=== PATIENT | female | born 1995 | race Caucasian/White ===

== ENCOUNTER 2017-02-25 11:04 | Emergency (ER) | payer MEDICAID ==
[~2017-02-25] VITALS: Ht 165.1 cm; Wt 63.5 kg
[~2017-02-25 11:04] MED LIST: PREN-385 PO
[2017-02-25 11:10] VITALS: BP 118/77
[2017-02-25 12:07] LABS: BASOPHILS # (AUTO) 0.2 K/uL (0.00-0.22); BASOPHILS % (AUTO) 2.2 % (0.0-2.0); EOSINOPHILS # (AUTO) 0.2 K/uL (0-0.4); EOSINOPHILS % (AUTO) 1.9 % (0.0-4.0); HEMATOCRIT 37.2 % (36-48); HEMOGLOBIN 12.1 g/dL (12.0-16.0); LYMPHOCYTES # (AUTO) 1.7 K/uL (2.5-16.5); LYMPHOCYTES % (AUTO) 17.8 % (20.5-51.1); MEAN CORPUSCULAR HEMOGLOBIN 25 pg (27-31); MEAN CORPUSCULAR HGB CONC 33 g/dL (33-37); MEAN CORPUSCULAR VOLUME 78 fL (80-94); MONOCYTES # (AUTO) 0.5 K/uL (0.8-1.0); MONOCYTES % (AUTO) 4.8 % (1.7-9.3); NEUTROPHILS # (AUTO) 6.9 K/uL (1.8-7.7); NEUTROPHILS % (AUTO) 73.3 % (42.2-75.2); PLATELET COUNT (AUTO) 233 K/uL (140-450); RED BLOOD CELL COUNT(AUTO) 4.79 MIL/uL (4.20-5.40); RED CELL DISTRIBUTION WIDTH 16.9 % (11.6-13.7); WHITE BLOOD COUNT (AUTO) 9.5 K/uL (4.8-10.8)
[2017-02-25 12:15] LABS: BILIRUBIN,URINE NEGATIVE (NEGATIVE); BLOOD, URINE NEGATIVE (NEGATIVE); COLOR,URINE YELLOW (YELLOW); LEUKOCYTE ESTERASE ,URINE NEGATIVE (NEGATIVE); NITRITE, URINE NEGATIVE (NEGATIVE); PH,URINE 7.5 (5.0-9.0); PROTEIN,URINE NEGATIVE (NEGATIVE); UGLUCOSE NEGATIVE (NEGATIVE); UROBILINOGEN,URINE 0.2 EU/dL (0.2 - 1)
[2017-02-25 12:36] LABS: APPEARANCE,URINE CLEAR (CLEAR); BACTERIA,URINE 0-2 (RARE) /HPF (None Seen); RBC,URINE NONE SEEN /HPF (0-5); SQUAMOUS EPITHELIAL CELL,UR 0-3 (FEW) /LPF (0-3 (FEW)); WBC,URINE 0-5 (RARE) /HPF (0-5)
[2017-02-25 13:34] VITALS: BP 113/69
[2017-02-27 06:17] LABS: CHLAMYDIA TRACHOMATIS AMP DNA Negative (Negative)
== END 2017-02-25 13:34 | disposition home or self-care (01) ==
LOC: MED 11:04
DX: O20.0 Threatened abortion (principal); Z88.6 Allergy status to analgesic agent; Z88.5 Allergy status to narcotic agent; Z3A.10 10 weeks gestation of pregnancy
CPT/HCPCS: 36415; 76801; 81001; 81025; 84702; 85025; 86900; 86901; 87205; 87210; 87491; 99285; Q0092

== ENCOUNTER 2017-04-17 21:28 | Emergency (ER) | payer MEDICAID ==
[~2017-04-17] VITALS: Ht 165.1 cm; Wt 68.0 kg
[2017-04-17 21:33] VITALS: BP 108/62
--- NOTE | 2017-04-17 21:40 | NUR ---
Kate casas in [facility] - 04/17/17 at 2142 by MEDDM TO ER BED 8
--- NOTE | 2017-04-17 21:40 | NUR ---
21/F BIB MOTHER C/O 11/25 SUPRAPUBIC PAIN X STARTED 2 HOURS AGO. PT STATES SHE IS 18 WEEK , NO VAG BLEEDING NOR CONTRACTIONS, LMP JANUARY 26. PT REPORTS DRIBBLING/URGENCY WITH VOIDING, DENIES HEMATURIA/BURNING. VSS; PATIENT POSITIONED FOR COMFORT; HOB ELEVATED; BEDRAILS UP X2; BED DOWN. ER MD MADE AWARE OF PT STATUS.
--- NOTE | 2017-04-17 21:42 | NUR ---
PT TAKEN TO BED 8.
--- NOTE | 2017-04-17 21:47 | NUR ---
Patient being evaluated by physician at bedside.
[2017-04-17 22:18] LABS: BASOPHILS # (AUTO) 0.2 K/uL (0.00-0.22); BASOPHILS % (AUTO) 1.5 % (0.0-2.0); EOSINOPHILS # (AUTO) 0.1 K/uL (0-0.4); EOSINOPHILS % (AUTO) 0.7 % (0.0-4.0); HEMATOCRIT 35.8 % (36-48); HEMOGLOBIN 11.7 g/dL (12.0-16.0); LYMPHOCYTES % (AUTO) 15.4 % (20.5-51.1); MEAN CORPUSCULAR HEMOGLOBIN 26 pg (27-31); MEAN CORPUSCULAR HGB CONC 33 g/dL (33-37); MEAN CORPUSCULAR VOLUME 81 fL (80-94); MONOCYTES # (AUTO) 0.5 K/uL (0.8-1.0); MONOCYTES % (AUTO) 3.8 % (1.7-9.3); NEUTROPHILS # (AUTO) 10.1 K/uL (1.8-7.7); NEUTROPHILS % (AUTO) 78.6 % (42.2-75.2); PLATELET COUNT (AUTO) 232 K/uL (140-450); RED BLOOD CELL COUNT(AUTO) 4.41 MIL/uL (4.20-5.40); RED CELL DISTRIBUTION WIDTH 14.4 % (11.6-13.7); WHITE BLOOD COUNT (AUTO) 12.9 K/uL (4.8-10.8)
--- NOTE | 2017-04-17 22:21 | NUR ---
Ultrasound at bedside.
[2017-04-17 22:39] LABS: ALBUMIN 3.1 g/dL (3.4-5.0); CARBON DIOXIDE 22.6 mmol/L (21-32); CREATININE 0.6 mg/dL (0.6-1.3); POTASSIUM 3.6 mmol/L (3.5-5.1); TOTAL BILIRUBIN 0.3 mg/dL (0.0-1.0)
[2017-04-17 22:54] LABS: APPEARANCE,URINE HAZY (CLEAR); BILIRUBIN,URINE NEGATIVE (NEGATIVE); BLOOD, URINE NEGATIVE (NEGATIVE); COLOR,URINE YELLOW (YELLOW); LEUKOCYTE ESTERASE ,URINE NEGATIVE (NEGATIVE); NITRITE, URINE NEGATIVE (NEGATIVE); UGLUCOSE NEGATIVE (NEGATIVE)
[2017-04-17 23:08] LABS: RBC,URINE 0-5 (RARE) /HPF (0-5); WBC,URINE 6-15 (FEW) /HPF (0-5)
--- NOTE | 2017-04-17 23:21 | NUR ---
Patient discharged with v/s stable. Written and verbal after care instructions given and explained. Patient alert, oriented and verbalized understanding of instructions. Ambulatory with steady gait. All questions addressed prior to discharge. ID band removed. Patient advised to follow up with PMD. Rx of MACROBID 1 CAP PO TWICE DAILY X 10DAYS given. Patient educated on indication of medication including possible reaction and side effects. Opportunity to ask questions provided and answered. Addendum: 04/17/17 at 2322 by DARYL PT DISCHARGED BY JAZMYN CORNEJO
== END 2017-04-17 23:20 | disposition home or self-care (01) ==
LOC: MED 21:28
DX: O23.42 Unspecified infection of urinary tract in pregnancy, second trimester (principal); Z3A.18 18 weeks gestation of pregnancy; Z88.5 Allergy status to narcotic agent; Z88.6 Allergy status to analgesic agent; Z79.899 Other long term (current) drug therapy
CPT/HCPCS: 36415; 76805; 80053; 81001; 84702; 85025; 86900; 86901; 87086; 99285; Q0092

== ENCOUNTER 2017-06-21 15:52 | Emergency (ER) | payer MEDICAID ==
[~2017-06-21] VITALS: Ht 165.1 cm; Wt 72.6 kg
[2017-06-21 13:46] VITALS: BP 112/57
[2017-06-21 16:13] VITALS: BP 136/71
--- NOTE | 2017-06-21 16:21 | NUR ---
22F BIB SELF WITH FROM L&D WITH THE C/0 COUGH AND CONGESTION X 1WK; PT REPORTS FEVER LAST NIGHT; LMP 01/19/17, G6 G2 M3; PT DENIES ANY PAIN AT THIS TIME, ONLY WHEN COUGHING; PT DENIES ANY CP, SOB, OR VAGINAL BLEEDING; PT IS AOX4, RR ARE EVEN AND UNLABORED; ER MD AWARE OF PT STATUS; NAD; WILL CONTINUE TO MONITOR.
[2017-06-21] MEDS ORDERED: ALBUTEROL 0.083% 2.5 MG/3 ML NEBU INH ONE (16:45)
--- NOTE | 2017-06-21 16:55 | NUR ---
RT BY BEDSIDE
--- NOTE | 2017-06-21 17:33 | NUR ---
Patient discharged with v/s stable. Written and verbal after care instructions given and explained. Patient alert, oriented and verbalized understanding of instructions. Ambulatory with steady gait. All questions addressed prior to discharge. ID band removed. Patient advised to follow up with PMD. Rx of Robitussin, ProAir, and Cephalexin given. Patient educated on indication of medication including possible reaction and side effects. Opportunity to ask questions provided and answered.
[2017-06-21 17:34] VITALS: BP 126/64
== END 2017-06-21 17:33 | disposition home or self-care (01) ==
LOC: EDSTATUS 15:52 → MED 15:52
DX: O26.892 Other specified pregnancy related conditions, second trimester (principal); J20.9 Acute bronchitis, unspecified; J98.01 Acute bronchospasm; J32.9 Chronic sinusitis, unspecified; Z79.899 Other long term (current) drug therapy; Z88.8 Allergy status to other drugs, medicaments and biological substances
CPT/HCPCS: 59025; 76805; 81000; 94640; 99285; J7613; Q0092

== ENCOUNTER 2017-09-23 14:37 | Emergency (ER) | payer MEDICAID ==
[~2017-09-23] VITALS: Ht 165.1 cm; Wt 68.0 kg
[2017-09-23 15:15] VITALS: BP 133/93
--- NOTE | 2017-09-23 15:15 | NUR ---
PT AMBULATED TO BED 2.
--- NOTE | 2017-09-23 15:27 | NUR ---
TRIP AND FALL X1 WEEK AGO AND STATES SHE HIT HER HEAD ON THE SIDE WALK; DENIES LOC BUT C/O INTERMITTENT BLURRY VISION AND DIZZINESS. NO HEMATOMA NOTED, NO OBVIOUS INJURY. AAOX4, IN NAD. HX DENIES; 09/16/17
[2017-09-23] MEDS ORDERED: IBUPROFEN 800 MG TAB PO ONE (15:30)
[2017-09-23] MEDS ORDERED: ONDANSETRON 4 MG/2 ML VIAL IVP ONE (16:10)
[2017-09-23] MEDS ORDERED: NACL 0.9% 1,000 ML IV ONE (16:10)
[2017-09-23 16:39] LABS: BASOPHILS % (AUTO) 0.5 % (0.0-2.0); EOSINOPHILS # (AUTO) 0.2 K/uL (0-0.4); EOSINOPHILS % (AUTO) 1.9 % (0.0-4.0); HEMOGLOBIN 8.3 g/dL (12.0-16.0); LYMPHOCYTES # (AUTO) 1.9 K/uL (2.5-16.5); LYMPHOCYTES % (AUTO) 20.5 % (20.5-51.1); MEAN CORPUSCULAR HEMOGLOBIN 23 pg (27-31); MEAN CORPUSCULAR HGB CONC 32 g/dL (33-37); MEAN CORPUSCULAR VOLUME 73 fL (80-94); MONOCYTES # (AUTO) 0.4 K/uL (0.8-1.0); MONOCYTES % (AUTO) 4.6 % (1.7-9.3); NEUTROPHILS # (AUTO) 6.7 K/uL (1.8-7.7); NEUTROPHILS % (AUTO) 72.5 % (42.2-75.2); PLATELET COUNT (AUTO) 392 K/uL (140-450); RED BLOOD CELL COUNT(AUTO) 3.59 MIL/uL (4.20-5.40); WHITE BLOOD COUNT (AUTO) 9.3 K/uL (4.8-10.8)
[2017-09-23 16:55] LABS: ANION GAP 13.5 (8-16); CARBON DIOXIDE 24.3 mmol/L (21-32); CREATININE 0.6 mg/dL (0.6-1.3); POTASSIUM 3.8 mmol/L (3.5-5.1)
[2017-09-23 16:59] LABS: ALBUMIN 2.6 g/dL (3.4-5.0); TOTAL BILIRUBIN 0.2 mg/dL (0.0-1.0)
--- NOTE | 2017-09-23 17:01 | NUR ---
PT TO CT SCAN
[2017-09-23 17:54] VITALS: BP 117/79
--- NOTE | 2017-09-23 17:55 | NUR ---
Patient discharged with v/s stable. Written and verbal after care instructions given and explained. Patient verbalized understanding. Ambulatory with to home. All questions addressed prior to discharge. Advised to follow up with PMD.
== END 2017-09-23 17:55 | disposition home or self-care (01) ==
LOC: MED 14:37
DX: F07.81 Postconcussional syndrome (principal); Z88.6 Allergy status to analgesic agent; Z88.5 Allergy status to narcotic agent
CPT/HCPCS: 36415; 70450; 80053; 85025; 96360; 99285; J7030; 81025

== ENCOUNTER 2018-07-20 17:27 | Emergency (ER) | payer MEDICAID ==
[~2018-07-20] VITALS: Ht 165.1 cm; Wt 80.3 kg
[2018-07-20 17:30] VITALS: BP 119/78
[2018-07-20] MEDS ORDERED: NACL 0.9% 1,000 ML IV ONE (18:05)
[2018-07-20] MEDS ORDERED: ONDANSETRON 4 MG/2 ML VIAL IVP ONE (18:05)
[2018-07-20] MEDS ORDERED: KETOROLAC 30 MG/ML VIAL IVP ONE (18:05)
[2018-07-20 18:39] LABS: BASOPHILS # (AUTO) 0.1 K/uL (0.00-0.22); BASOPHILS % (AUTO) 0.5 % (0.0-2.0); EOSINOPHILS # (AUTO) 0.1 K/uL (0-0.4); EOSINOPHILS % (AUTO) 0.9 % (0.0-4.0); HEMATOCRIT 37.8 % (36-48); LYMPHOCYTES # (AUTO) 2.5 K/uL (2.5-16.5); LYMPHOCYTES % (AUTO) 21.2 % (20.5-51.1); MEAN CORPUSCULAR HEMOGLOBIN 25 pg (27-31); MEAN CORPUSCULAR HGB CONC 32 g/dL (33-37); MEAN CORPUSCULAR VOLUME 77.3 fL (80-94); MONOCYTES # (AUTO) 0.6 K/uL (0.8-1.0); MONOCYTES % (AUTO) 5.5 % (1.7-9.3); NEUTROPHILS # (AUTO) 8.5 K/uL (1.8-7.7); NEUTROPHILS % (AUTO) 71.9 % (42.2-75.2); PLATELET COUNT (AUTO) 242 K/uL (140-450); RED BLOOD CELL COUNT(AUTO) 4.89 MIL/uL (4.20-5.40); RED CELL DISTRIBUTION WIDTH 16.5 % (11.6-13.7); WHITE BLOOD COUNT (AUTO) 11.8 K/uL (4.8-10.8)
[2018-07-20 18:59] LABS: APPEARANCE,URINE CLEAR (CLEAR); BILIRUBIN,URINE NEGATIVE (NEGATIVE); BLOOD, URINE NEGATIVE (NEGATIVE); COLOR,URINE YELLOW (YELLOW); LEUKOCYTE ESTERASE ,URINE TRACE (NEGATIVE); NITRITE, URINE NEGATIVE (NEGATIVE); PH,URINE 6.5 (5.0-9.0); UGLUCOSE NEGATIVE (NEGATIVE)
[2018-07-20 19:01] LABS: PROTHROMBIN TIME 9.5 secs (10.8-13.4)
[2018-07-20 19:27] LABS: ANION GAP 17.2 (8-16); CREATININE 0.6 mg/dL (0.6-1.3); POTASSIUM 4.2 mmol/L (3.5-5.1); TOTAL BILIRUBIN 0.2 mg/dL (0.0-1.0)
[2018-07-20 19:38] LABS: RBC,URINE 0-5 (RARE) /HPF (0-5); WBC,URINE 6-15 (FEW) /HPF (0-5)
[2018-07-20 20:24] VITALS: BP 120/75
== END 2018-07-20 20:24 | disposition home or self-care (01) ==
LOC: MED 17:27
DX: O20.8 Other hemorrhage in early pregnancy (principal); Z3A.14 14 weeks gestation of pregnancy; Z79.899 Other long term (current) drug therapy; Z88.6 Allergy status to analgesic agent; Z88.5 Allergy status to narcotic agent
CPT/HCPCS: 36415; 76705; 76801; 80053; 81001; 81025; 82150; 83690; 85025; 85610; 85730; 87086; 96374; 99284; J2405; J7030; Q0092

== ENCOUNTER 2018-08-07 19:10 | Emergency (ER) | payer MEDICAID ==
[~2018-08-07] VITALS: Ht 165.1 cm; Wt 78.5 kg
[2018-08-07 19:15] VITALS: BP 166/58
--- NOTE | 2018-08-07 19:23 | NUR ---
PT AMBULATED TO LOBBY WITH VSS.
--- NOTE | 2018-08-07 19:40 | NUR ---
TO RADIOLOGY VIA
--- NOTE | 2018-08-07 20:32 | NUR ---
RETURN FROM RADIOLOGY, LAB AT BEDSIDE.
--- NOTE | 2018-08-07 20:41 | NUR ---
PT PRESENTS TO ED W C/O CHEST PAIN WHILE COUGHING, NAUSEA, AND SEVERE GREGG X3 DAYS. 01/25. NON-PRODUCTIVE COUGH. C/O BURNING WHEN COUGHING. LUNGS CLEAR BILAT THROUGHOUT. ABD IS SOFT, FLAT. BOWEL SOUNDS PRESENT. PT PLACED INTO BED, PENDING MD MENDEZ. PMH--DENIES
[2018-08-07 20:47] LABS: BASOPHILS % (AUTO) 0.4 % (0.0-2.0); EOSINOPHILS # (AUTO) 0.2 K/uL (0-0.4); EOSINOPHILS % (AUTO) 1.6 % (0.0-4.0); HEMATOCRIT 38.5 % (36-48); HEMOGLOBIN 12.2 g/dL (12.0-16.0); LYMPHOCYTES # (AUTO) 2.2 K/uL (2.5-16.5); MEAN CORPUSCULAR HEMOGLOBIN 25 pg (27-31); MEAN CORPUSCULAR HGB CONC 32 g/dL (33-37); MEAN CORPUSCULAR VOLUME 78.1 fL (80-94); MONOCYTES # (AUTO) 0.5 K/uL (0.8-1.0); MONOCYTES % (AUTO) 4.3 % (1.7-9.3); NEUTROPHILS # (AUTO) 8.6 K/uL (1.8-7.7); NEUTROPHILS % (AUTO) 74.7 % (42.2-75.2); PLATELET COUNT (AUTO) 251 K/uL (140-450); RED BLOOD CELL COUNT(AUTO) 4.93 MIL/uL (4.20-5.40); RED CELL DISTRIBUTION WIDTH 16.5 % (11.6-13.7); WHITE BLOOD COUNT (AUTO) 11.5 K/uL (4.8-10.8)
[2018-08-07 20:57] LABS: ANION GAP 8.7 (8-16); CARBON DIOXIDE 25.9 mmol/L (21-32); CREATININE 0.7 mg/dL (0.6-1.3); POTASSIUM 3.6 mmol/L (3.5-5.1)
[2018-08-07 20:58] LABS: APPEARANCE,URINE CLEAR (CLEAR); BILIRUBIN,URINE NEGATIVE (NEGATIVE); BLOOD, URINE NEGATIVE (NEGATIVE); COLOR,URINE YELLOW (YELLOW); LEUKOCYTE ESTERASE ,URINE TRACE (NEGATIVE); NITRITE, URINE NEGATIVE (NEGATIVE); PH,URINE 6.5 (5.0-9.0); UGLUCOSE NEGATIVE (NEGATIVE)
[2018-08-07 20:59] LABS: RBC,URINE 0-5 (RARE) /HPF (0-5); WBC,URINE 0-5 (RARE) /HPF (0-5)
[2018-08-07 21:48] VITALS: BP 144/51
== END 2018-08-07 21:49 | disposition home or self-care (01) ==
LOC: MED 19:10
DX: O26.892 Other specified pregnancy related conditions, second trimester (principal); O21.8 Other vomiting complicating pregnancy; R07.89 Other chest pain; R51 Headache; R05 Cough; Z3A.16 16 weeks gestation of pregnancy; Z88.6 Allergy status to analgesic agent; Z88.5 Allergy status to narcotic agent; Z79.899 Other long term (current) drug therapy
CPT/HCPCS: 36415; 76805; 80048; 81001; 84702; 85025; 86900; 86901; 99284; Q0092; 93005

== ENCOUNTER 2018-10-02 17:45 | Observation (INO) | payer MEDICAID ==
[~2018-10-02] VITALS: Ht 165.1 cm; Wt 77.1 kg
[2018-10-02 18:29] VITALS: BP 119/70
[2018-10-02] MEDS ORDERED: FERR-252 PO (18:37)
[2018-10-02 20:18] LABS: APPEARANCE,URINE CLOUDY (CLEAR); BILIRUBIN,URINE NEGATIVE (NEGATIVE); BLOOD, URINE 3+ (NEGATIVE); COLOR,URINE YELLOW (YELLOW); LEUKOCYTE ESTERASE ,URINE 3+ (NEGATIVE); NITRITE, URINE NEGATIVE (NEGATIVE); PH,URINE 6.5 (5.0-9.0); UGLUCOSE NEGATIVE (NEGATIVE)
[2018-10-02 20:19] LABS: BASOPHILS # (AUTO) 0.1 K/uL (0.00-0.22); BASOPHILS % (AUTO) 0.4 % (0.0-2.0); EOSINOPHILS # (AUTO) 0.1 K/uL (0-0.4); EOSINOPHILS % (AUTO) 0.9 % (0.0-4.0); HEMATOCRIT 32.9 % (36-48); HEMOGLOBIN 10.9 g/dL (12.0-16.0); LYMPHOCYTES # (AUTO) 2.4 K/uL (2.5-16.5); MEAN CORPUSCULAR HEMOGLOBIN 26 pg (27-31); MEAN CORPUSCULAR HGB CONC 33 g/dL (33-37); MEAN CORPUSCULAR VOLUME 77.7 fL (80-94); MONOCYTES # (AUTO) 0.8 K/uL (0.8-1.0); MONOCYTES % (AUTO) 6.3 % (1.7-9.3); NEUTROPHILS # (AUTO) 9.8 K/uL (1.8-7.7); NEUTROPHILS % (AUTO) 74.4 % (42.2-75.2); PLATELET COUNT (AUTO) 272 K/uL (140-450); RED BLOOD CELL COUNT(AUTO) 4.24 MIL/uL (4.20-5.40); WHITE BLOOD COUNT (AUTO) 13.2 K/uL (4.8-10.8)
[2018-10-02 20:23] LABS: RBC,URINE 50-80 /HPF (0-5); WBC,URINE 20-60 /HPF (0-5)
[2018-10-02] MEDS ORDERED: AMPICILLIN 2,000 MG VIAL ONE (21:59)
[2018-10-02] MEDS ORDERED: IBUPROFEN 800 MG TAB PO SCH (22:00)
[2018-10-02] MEDS: LACTATED RINGERS 1,000 ML IV SCH (22:55)
[2018-10-02] MEDS: AMPICILLIN 2,000 MG in NACL 0.9% 100 ML IV SCH (22:56)
[2018-10-03] MEDS: AMPICILLIN 2,000 MG in NACL 0.9% 100 ML IV SCH ×3 (01:55→10:07)
[2018-10-03] MEDS ORDERED: AMPICILLIN 2,000 MG VIAL ONE ×4 (01:57→14:14)
[2018-10-03] MEDS: LACTATED RINGERS 1,000 ML IV SCH (07:29)
--- NOTE | 2018-10-03 08:24 | NUR ---
PATIENT HAS BEEN SCREENED AND CATEGORIZED LOW NUTRITION RISK. PATIENT WILL BE SEEN WITHIN 7 DAYS OF ADMISSION. 10/09/[address]
== END 2018-10-03 14:45 | disposition home or self-care (01) ==
LOC: MLD 17:45
PROVIDERS: ADMIT Obstetrics & Gynecology; ATTEND Obstetrics & Gynecology
DX: O26.892 Other specified pregnancy related conditions, second trimester (principal); R10.9 Unspecified abdominal pain; Z3A.24 24 weeks gestation of pregnancy
CPT/HCPCS: 36415; 81001; 85025; 87086; 96365; 96366; C1758; G0378; J0290; J7120

== ENCOUNTER 2020-03-22 16:13 | Emergency (ER) | payer MEDICAID, OTHER ==
[~2020-03-22] VITALS: Ht 165.1 cm; Wt 83.9 kg
[~2020-03-22 16:13] MED LIST changes: +FERR-252 PO
--- NOTE | 2020-03-22 16:23 | NUR ---
Patient ambulated to bed 6. RN evaluating the patient at bedside.
[2020-03-22 16:26] VITALS: BP 122/78
--- NOTE | 2020-03-22 16:59 | NUR ---
24 YEAR OLD FEMALE COMPLAINS OF LOWER RIGHT QUADRANT PAIN IN ABDOMEN THAT RADIATES TO LOWER BACK. PT DENIES ANY CHANGE IN URINATION, OR BLOOD IN URINATION. PT STATES SHE HAS NAUSEA, VOMITTING. PT AOX4, BREATHING EVEN AND UNLABORED, SKIN WARM AND DRY. BED IN LOWEST POSITION, LOCKED, BED RAIL UPX1. PMH -DENIES ALLERGIES - VICOTIN
[2020-03-22] MEDS ORDERED: ACETAMINOPHEN EXTRA STRENGTH 500 MG TAB PO ONE (17:05)
[2020-03-22] MEDS ORDERED: KETOROLAC 15 MG/ML VIAL IVP ONE (17:05)
--- NOTE | 2020-03-22 17:21 | NUR ---
US tech at bedside for exam.
[2020-03-22 17:28] LABS: APPEARANCE,URINE CLEAR (CLEAR); BASOPHILS # (AUTO) 0.1 K/uL (0.00-0.22); BASOPHILS % (AUTO) 0.7 % (0.0-2.0); BILIRUBIN,URINE NEGATIVE (NEGATIVE); BLOOD, URINE TRACE-I (NEGATIVE); COLOR,URINE YELLOW (YELLOW); EOSINOPHILS # (AUTO) 0.2 K/uL (0-0.4); EOSINOPHILS % (AUTO) 1.8 % (0.0-4.0); HEMOGLOBIN 14.6 g/dL (12.0-16.0); LEUKOCYTE ESTERASE ,URINE TRACE (NEGATIVE); LYMPHOCYTES # (AUTO) 2.7 K/uL (2.5-16.5); LYMPHOCYTES % (AUTO) 30.6 % (20.5-51.1); MEAN CORPUSCULAR HEMOGLOBIN 30 pg (27-31); MEAN CORPUSCULAR HGB CONC 33 g/dL (33-37); MEAN CORPUSCULAR VOLUME 89.2 fL (80-94); MONOCYTES # (AUTO) 0.8 K/uL (0.8-1.0); MONOCYTES % (AUTO) 8.9 % (1.7-9.3); NEUTROPHILS # (AUTO) 5.2 K/uL (1.8-7.7); NITRITE, URINE NEGATIVE (NEGATIVE); PH,URINE 6.5 (5.0-9.0); PLATELET COUNT (AUTO) 251 K/uL (140-450); RED BLOOD CELL COUNT(AUTO) 4.93 MIL/uL (4.20-5.40); RED CELL DISTRIBUTION WIDTH 13.7 % (11.6-13.7); UGLUCOSE NEGATIVE (NEGATIVE); WHITE BLOOD COUNT (AUTO) 8.9 K/uL (4.8-10.8)
[2020-03-22 17:47] LABS: ALBUMIN 3.7 g/dL (3.4-5.0); ANION GAP 17.8 (8-16); CARBON DIOXIDE 22.3 mmol/L (21-32); CREATININE 0.8 mg/dL (0.6-1.3); POTASSIUM 4.1 mmol/L (3.5-5.1); TOTAL BILIRUBIN 0.2 mg/dL (0.0-1.0)
--- NOTE | 2020-03-22 17:53 | NUR ---
PT ALERT AND AWAKE, BREATHING EVEN AND UNLABORED. NO DISTRESS NOTED. WILL CONTINUE TO MONITOR.
[2020-03-22] MEDS ORDERED: ONDANSETRON 4 MG/2 ML VIAL IVP ONE (18:15)
[2020-03-22] MEDS ORDERED: MORPHINE SULFATE 4 MG/ML SYR IVP ONE (18:15)
--- NOTE | 2020-03-22 18:16 | NUR ---
CONSENT SIGNED BY PATIENT, SIGNED BY ERMD. PATIENT BEING TAKEN TO CT
--- NOTE | 2020-03-22 18:17 | NUR ---
PT REPORTS 6/10 PAIN AFTER TORADOL ADMINISTRATION. PER PT, ALLERGY TO VICODIN RESULTS IN PRURITIS & NAUSEA. DENIES ANAPHYLACTIC REACTION. ERMD MADE AWARE AND WILL ORDER MORE PAIN MEDICATION FOR PT.
--- NOTE | 2020-03-22 18:32 | NUR ---
Patient returned from CT scan. RN reevaluating the patient at bedside.
--- NOTE | 2020-03-22 19:05 | NUR ---
REPORT GIVEN TO ELVIA PATEL, TRANSFER OF CARE AT THIS TIME
--- NOTE | 2020-03-22 19:13 | NUR ---
PT RESTING COMFORTABLY, DENIES ANY NAUSEA AND STATES PAIN TO LOWER ABD IS NOW 1/10.
--- NOTE | 2020-03-22 19:13 | NUR ---
REPORT RECEIVED FROM CYNTHIA PATEL.
--- NOTE | 2020-03-22 19:40 | NUR ---
Patient discharged with v/s stable. Written and verbal after care instructions given and explained. Patient alert, oriented and verbalized understanding of instructions. Ambulatory with steady gait. All questions addressed prior to discharge. ID band removed. Patient advised to follow up with PMD. Rx of tylenol with codeine, motrin and flomax given. Patient educated on indication of medication including possible reaction and side effects. Opportunity to ask questions provided and answered.
== END 2020-03-22 19:40 | disposition home or self-care (01) ==
LOC: MED 16:13
DX: N83.291 Other ovarian cyst, right side (principal); N23 Unspecified renal colic; N20.0 Calculus of kidney; Z88.5 Allergy status to narcotic agent; Z79.899 Other long term (current) drug therapy
CPT/HCPCS: 36415; 74177; 76856; 80053; 81001; 81003; 81025; 83690; 84703; 85025; 87086; 87186; 96374; 96375; 99285; J1885; J2270; J2405; Q0092; Q9967

== ENCOUNTER 2020-03-25 09:34 | Inpatient (IN) | payer OTHER, SELFPAY ==
[~2020-03-25] VITALS: Ht 165.1 cm; Wt 83.9 kg
[2020-03-25 09:39] VITALS: BP 129/75
--- NOTE | 2020-03-25 09:45 | NUR ---
PT C/O RIGHT FLANK PAIN RADIATING TO RLQ ABDOMINAL AREA FOR 4 DAYS. PT WAS SEEN HERE LAST WEDNESDAY, CT SHOWED NEPHROLITHIASIS-7MM, WAS TOLD TO COME BACK IF PAIN PERSISTS OR FEVER DEVELOPS. PT STATES FEVER X 2 DAYS. TEMP 101 THIS MORNING, PT TOOK TYLENOL 1 HR AGO, AFEBRILE AT THIS TIME. PT ALSO C/O NAUSEA, VOMITING, FEVER, CHILLS, URINARY FREQUENCY WITH ODOR. DENIES DYSURIA OR BURNING SENSATION OF URINATION. ABDOMEN IS SOFT AND SLIGHT TENDER BUT NO GUARDING OR REBOUND TENDER TO PALPATION ON RICARDO LOWER QUADRANTS, RIGHT SIDE IS MORE PAINFUL THAN THE LEFT SIDE. NO CVA TENDERNESS RICARDO. SKIN IS PINK/WARM/DRY; AAOX4 WITH EVEN AND STEADY GAIT; HR EVEN AND REGULAR; PT DENIES ANY CP, SOB, OR COUGH AT THIS TIME; PATIENT STATES PAIN OF 5/10 AT THIS TIME; VSS; PATIENT POSITIONED FOR COMFORT; HOB ELEVATED; BEDRAILS UP X1; BED DOWN. ER MD MADE AWARE OF PT STATUS.
[2020-03-25] MEDS ORDERED: ONDANSETRON 4 MG/2 ML VIAL IVP ONE ×2 (10:10→14:45)
[2020-03-25] MEDS ORDERED: KETOROLAC 30 MG/ML VIAL IVP ONE (10:10)
[2020-03-25 10:27] LABS: BASOPHILS % (AUTO) 0.2 % (0.0-2.0); HEMATOCRIT 41.4 % (36-48); HEMOGLOBIN 13.7 g/dL (12.0-16.0); LYMPHOCYTES # (AUTO) 0.8 K/uL (2.5-16.5); LYMPHOCYTES % (AUTO) 5.6 % (20.5-51.1); MEAN CORPUSCULAR HEMOGLOBIN 30 pg (27-31); MEAN CORPUSCULAR HGB CONC 33 g/dL (33-37); MEAN CORPUSCULAR VOLUME 88.9 fL (80-94); MONOCYTES # (AUTO) 1.3 K/uL (0.8-1.0); NEUTROPHILS % (AUTO) 85.2 % (42.2-75.2); PLATELET COUNT (AUTO) 210 K/uL (140-450); RED BLOOD CELL COUNT(AUTO) 4.65 MIL/uL (4.20-5.40); RED CELL DISTRIBUTION WIDTH 13.1 % (11.6-13.7)
[2020-03-25 10:33] LABS: APPEARANCE,URINE CLEAR (CLEAR); BILIRUBIN,URINE NEGATIVE (NEGATIVE); BLOOD, URINE 1+ (NEGATIVE); COLOR,URINE AMBER (YELLOW); LEUKOCYTE ESTERASE ,URINE NEGATIVE (NEGATIVE); NITRITE, URINE POSITIVE (NEGATIVE); PH,URINE 6.5 (5.0-9.0); UGLUCOSE 2+ (NEGATIVE)
[2020-03-25 10:52] LABS: RBC,URINE 11-20 (MOD) /HPF (0-5)
[2020-03-25 10:56] LABS: ALBUMIN 3.4 g/dL (3.4-5.0); ANION GAP 14.8 (8-16); CARBON DIOXIDE 21.8 mmol/L (21-32); CREATININE 0.8 mg/dL (0.6-1.3); POTASSIUM 3.6 mmol/L (3.5-5.1); TOTAL BILIRUBIN 0.7 mg/dL (0.0-1.0)
--- NOTE | 2020-03-25 11:00 | NUR ---
PT IS RESTING IN THE BED AND STATES SHE FEELS MUCH BETTER. WILL CONTINUE MONITORING PT'S VITAL SIGNS.
[2020-03-25] MEDS ORDERED: cefTRIAXone 1,000 MG VIAL ONE (11:12)
[2020-03-25] MEDS ORDERED: ONDANSETRON 4 MG/2 ML VIAL ONE (14:15)
[2020-03-25] MEDS ORDERED: diphenhydrAMINE 50 MG/ML VIAL IVP ONE (14:20)
[2020-03-25] MEDS ORDERED: METOCLOPRAMIDE 10 MG/2 ML INJ VIAL IVP ONE (14:20)
--- NOTE | 2020-03-25 15:30 | NUR ---
DR. JULIO IS REEVALUATING PT AT BEDSIDE.
[2020-03-25] MEDS ORDERED: ACETAMINOPHEN EXTRA STRENGTH 500 MG TAB PO ONE (15:45)
--- NOTE | 2020-03-25 17:33 | NUR ---
TYLER MARINELLI SWAB COLLECTED AND GIVEN TO PHLEB TECH.
--- NOTE | 2020-03-25 18:18 | NUR ---
REGULAR DIET DINNER PROVIDED TO PT TO BEDSIDE. PT IS EATING IN THE BED.
--- NOTE | 2020-03-25 19:20 | NUR ---
RECEIVED BEDSIDE ENDORSEMENT FROM AMANDA STREET. ADMITTED 24 Y/O FEMALE. LYING IN BED SEMI FOWLERS POSITION. NO SOB, AMANDA STREET IS CURRENTLY INSERTING IV CANNULA TO PATIENT. WILL TAKE MRSA SWAB AND V/S. AMBULATORY. SAFETY MEASURES IN PLACE, LOW BED IN PLACE, PLAN OF CARE DISCUSSED, CALL LIGHT WITHIN REACH.
--- NOTE | 2020-03-25 19:20 | NUR ---
Patient will be admitted to care of SEPSIS. Admited to TELE. Will go to room 108B. Belongings list completed. Report to AMANDA MAN.
[2020-03-25] MEDS: ACETAMINOPHEN 325 MG TAB PO PRN (19:55)
--- NOTE | 2020-03-25 19:57 | NUR ---
C/O MILD HEADACHE 09/25. TYLENOL GIVEN PRN MILD PAIN.
[2020-03-25 20:00] VITALS: BP 105/61
[2020-03-25] MEDS: KETOROLAC 15 MG/ML VIAL IVP PRN (22:19)
[2020-03-25] MEDS: ONDANSETRON 4 MG/2 ML VIAL IVP PRN (22:25)
--- NOTE | 2020-03-25 22:27 | NUR ---
DR. PRITCHETT LICENSED VOCATIONAL NURSE ORDERED THE RATE 75ML/HR FOR THE NS 1L. NOTED AND CARRIED OUT.
[2020-03-25] MEDS: NACL 0.9% 1,000 ML IV SCH (23:24)
[2020-03-26] VITALS: BP 108/60
--- NOTE | 2020-03-26 01:56 | NUR ---
PATIENT IS ASLEEP.
[2020-03-26 04:00] VITALS: BP 117/66
--- NOTE | 2020-03-26 04:00 | NUR ---
V/S TAKEN, WNL. NO SOB, DENIES PAIN, CALL LIGHT WITHIN REACH.
[2020-03-26] MEDS: NACL 0.9% 1,000 ML IV SCH ×2 (05:21→19:20)
--- NOTE | 2020-03-26 06:20 | NUR ---
NOT IN ANY DISTRESS, NO PAIN NOTED, NO SOB, AFEBRILE. ALL NEEDS ATTENDED, CALL LIGHT WITHIN REACH.
[2020-03-26 07:18] LABS: ANION GAP 14.8 (8-16); CARBON DIOXIDE 21.7 mmol/L (21-32); CREATININE 0.7 mg/dL (0.6-1.3); POTASSIUM 3.5 mmol/L (3.5-5.1)
[2020-03-26 07:50] LABS: BASOPHILS % (AUTO) 0.1 % (0.0-2.0); HEMATOCRIT 40.8 % (36-48); HEMOGLOBIN 13.5 g/dL (12.0-16.0); LYMPHOCYTES # (AUTO) 1.5 K/uL (2.5-16.5); LYMPHOCYTES % (AUTO) 11.6 % (20.5-51.1); MEAN CORPUSCULAR HEMOGLOBIN 30 pg (27-31); MEAN CORPUSCULAR HGB CONC 33 g/dL (33-37); MEAN CORPUSCULAR VOLUME 89.2 fL (80-94); MONOCYTES # (AUTO) 1.9 K/uL (0.8-1.0); MONOCYTES % (AUTO) 14.6 % (1.7-9.3); NEUTROPHILS # (AUTO) 9.4 K/uL (1.8-7.7); NEUTROPHILS % (AUTO) 73.7 % (42.2-75.2); PLATELET COUNT (AUTO) 235 K/uL (140-450); RED BLOOD CELL COUNT(AUTO) 4.58 MIL/uL (4.20-5.40); RED CELL DISTRIBUTION WIDTH 13.2 % (11.6-13.7); WHITE BLOOD COUNT (AUTO) 12.7 K/uL (4.8-10.8)
[2020-03-26 07:57] VITALS: BP_SYST 114; BP_SYST 148; BP_DIAS 62; BP_DIAS 89
[2020-03-26] MEDS: ONDANSETRON 4 MG/2 ML VIAL IVP PRN ×2 (08:09→17:50)
[2020-03-26] MEDS: ACETAMINOPHEN 325 MG TAB PO PRN ×2 (08:10→21:09)
--- NOTE | 2020-03-26 09:21 | NUR ---
PATIENT HAS BEEN SCREENED AND CATEGORIZED MODERATE NUTRITION RISK. PATIENT WILL BE SEEN WITHIN 3-5 DAYS OF ADMISSION. 03/28/20 03/30/[address]
[2020-03-26] MEDS: KETOROLAC 15 MG/ML VIAL IVP PRN ×2 (11:20→17:59)
[2020-03-26 11:27] VITALS: BP 119/70
--- NOTE | 2020-03-26 12:07 | NUR ---
DC PLANNIN YRS OLD FEMALE PATIENT WAS ADMITTED FROM HOME WITH A DX OF SEPSIS. PATIENT HAS A HX OF OVARIAN CYST. CT ABD /PELVIS SHOWED NON OBSTRUCTING BILATERAL RENAL CALCULI. STARTED IVF, IV ABX ROCEPHIN AND PAIN MEDICATION. RAPID COVID TEST NEGATIVE, BLOOD AND URINE CULTURE PENDING. DC PLAN TO G HOME WHEN STABLE CM TO FOLLOW Addendum: 03/27/20 at 1520 by Janny Royal CM DC PLANNING: URINE CULTURE SHOWED E COLI AWAITING SENSITIVITY ,CONTINUE IV ABX WITH ROCEPHIN , AFEBRILE BP STABLE DC PLAN TO GO HOME WHEN STABLE. CM TO FOLLOW
[2020-03-26 16:00] VITALS: BP 127/71
--- NOTE | 2020-03-26 18:40 | NUR ---
INTERMITTENT HEADACHE, SOME RELIEF FROM TORADOL. MEDICATED FOR NAUSEA TWICE THIS SHIFT. REMAINS AFEBRLE, THIS EVENING 99.5 ON IV ANTIBIOTIC. 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 DENIES PAIN, COMPLAINTS IS MORE ON HEADACHE AND NAUSEA AT TIMES.
--- NOTE | 2020-03-26 19:05 | NUR ---
RECD. AMBULATING FROM THE BR. A/OX4. RESPIRATION EVEN AND UNLABORED. IV OF NS AT 75 ML/HR INFUSING, RIGHT HAND G20. VOIDING WELL. NO COMPLAINT OF NAUSEA. PLAN OF CARE FOR THE SHIFT DISCUSSED. VERBALIZED UNDERSTANDING. DENIES PAIN 0/10.
[2020-03-26 20:00] VITALS: BP 108/53
--- NOTE | 2020-03-26 21:09 | NUR ---
WITH HEADACHE, 5/10. MEDIATED WITH TYLENOL PER MD ORDER.
--- NOTE | 2020-03-26 22:05 | NUR ---
AMBULATED FROM BR. STATED, SHE IS FEELING BETTER, NO MORE HEADACHE, 0/10.
[2020-03-27] VITALS: BP 126/74
--- NOTE | 2020-03-27 | NUR ---
SLEEPING COMFORTABLY IN BED.
[2020-03-27 04:00] VITALS: BP 122/69
--- NOTE | 2020-03-27 04:00 | NUR ---
STILL SLEEPING COMFORTABLY IN BED.
[2020-03-27] MEDS: ONDANSETRON 4 MG/2 ML VIAL IVP PRN (06:11)
--- NOTE | 2020-03-27 06:11 | NUR ---
NAUSEATED, MEDICATED WITH ZOFRAN IVP BY AMANDA FLORES.
[2020-03-27] MEDS: NACL 0.9% 1,000 ML IV SCH ×2 (06:34→08:40)
--- NOTE | 2020-03-27 07:00 | NUR ---
NO NAUSEA NOTED. SLEEPING COMFORTABLY IN BED.
--- NOTE | 2020-03-27 07:01 | NUR ---
RECEIVED REPORT FROM STAFFING SPECIALIST NURSE TESSA. PT AOX4, RESTING IN BED, ON ROOM AIR WITH RIGHT HAND #20G RUNNING NS @75ML/HR. DISCUSSED PLAN OF CARE AND PT VERBALIZED UNDERSTANDING. CALL LIGHT WITHIN REACH. NO S/S OF RESPIRATORY DISTRESS OR DISCOMFORT NOTED AT THIS TIME. WILL CONTINUE TO MONITOR.
--- NOTE | 2020-03-27 07:47 | NUR ---
Patient's Plan of Care was discussed and reviewed with PROFESSIONAL BASS FISHER: KEVEN BENTON
[2020-03-27 07:48] LABS: BASOPHILS % (AUTO) 0.3 % (0.0-2.0); EOSINOPHILS % (AUTO) 0.3 % (0.0-4.0); HEMATOCRIT 38.8 % (36-48); HEMOGLOBIN 12.8 g/dL (12.0-16.0); LYMPHOCYTES # (AUTO) 1.7 K/uL (2.5-16.5); LYMPHOCYTES % (AUTO) 15.2 % (20.5-51.1); MEAN CORPUSCULAR HEMOGLOBIN 30 pg (27-31); MEAN CORPUSCULAR HGB CONC 33 g/dL (33-37); MEAN CORPUSCULAR VOLUME 89.2 fL (80-94); MONOCYTES # (AUTO) 1.4 K/uL (0.8-1.0); MONOCYTES % (AUTO) 12.1 % (1.7-9.3); NEUTROPHILS # (AUTO) 8.1 K/uL (1.8-7.7); NEUTROPHILS % (AUTO) 72.1 % (42.2-75.2); PLATELET COUNT (AUTO) 237 K/uL (140-450); RED BLOOD CELL COUNT(AUTO) 4.35 MIL/uL (4.20-5.40); RED CELL DISTRIBUTION WIDTH 13.3 % (11.6-13.7); WHITE BLOOD COUNT (AUTO) 11.2 K/uL (4.8-10.8)
[2020-03-27 08:00] VITALS: BP 107/62
[2020-03-27 08:14] LABS: ANION GAP 14.5 (8-16); CARBON DIOXIDE 22.3 mmol/L (21-32); POTASSIUM 3.8 mmol/L (3.5-5.1)
[2020-03-27 08:15] LABS: ALBUMIN 2.7 g/dL (3.4-5.0); CREATININE 0.6 mg/dL (0.6-1.3); TOTAL BILIRUBIN 0.4 mg/dL (0.0-1.0)
--- NOTE | 2020-03-27 10:30 | NUR ---
SCHEDULED MEDICATION ROCEPHIN GIVEN AND TOLERATED WELL. CALL LIGHT WITHIN REACH. NO S/S OF RESPIRATORY DISTRESS OR DISCOMFORT NOTED AT THIS TIME. WILL CONTINUE TO MONITOR.
--- NOTE | 2020-03-27 12:30 | NUR ---
PT RESTING IN BED. CALL LIGHT WITHIN REACH. NO S/S OF RESPIRATORY DISTRESS OR DISCOMFORT NOTED AT THIS TIME. WILL CONTINUE TO MONITOR.
--- NOTE | 2020-03-27 13:19 | NUR ---
[employer]UR[employer] NOTE: Patient's Orientation Unable To Assess Information Provided By DIEGO CHILDRESS - Comments SW WAS UNABLE TO MEET PATIENT AT BEDSIDE DUE TO MEDICAL CONDITION. SW COMPLETED ASSESSMENT WITH PATIENT'S . Clinical Provider Trainer, Realtionship and Phone Number DIEGO CHILDRESS [phone] Healthcare Power of Polysomnograph Tech No Does Patient Have a POLST No Identifying Problems No Social Work Triggers Is A Social Work Consult Needed No Mandate Report Filed No Explanation Of Identifying Problems PATIENT IS A 24-YEAR-OLD FEMALE ADMITTED FOR SEPSIS. PATIENT HAS NO SIGNIFICANT PMHX. Admitted From Home Pre-Admission Level Of Functioning Status Independent/Ambulatory Prior Resources/Services Used In Last 12 Months No Prior Resources Used Prior DME No Prior DME Used Living Situation Lives With Family House Patient Had Caregiver No Home Support No Caregiver Issues Financial Issues No Known Financial Issue Referral To The Financial Counselor Needed No Factors/Needs No D/C Needs Identified Pt/Rep Participated In Discharge Plan Yes Patient/Family Agress With Discharge Plan Yes Discharge Plan Comments TENTATIVE DISCHARGE PLAN IS FOR PATIENT TO RETURN HOME. DC Plan Status Initiated
[2020-03-27] MEDS ORDERED: ACET-1182 PO (13:28)
[2020-03-27] MEDS ORDERED: CEPH250C16 PO (13:28)
[2020-03-27 13:38] VITALS: BP 107/62
--- NOTE | 2020-03-27 14:30 | NUR ---
PT CONTINUES RESTING IN BED. CALL LIGHT WITHIN REACH. NO S/S OF RESPIRATORY DISTRESS OR DISCOMFORT NOTED AT THIS TIME. WILL CONTINUE TO MONITOR.
--- NOTE | 2020-03-27 15:00 | NUR ---
PT SIGNED DISCHARGE PAPERWORK. IV REMOVED AND ID BAND. PT TOLERATED WELL. CALL LIGHT WITHIN REACH. NO S/S OF RESPIRATORY DISTRESS OR DISCOMFORT NOTED AT THIS TIME. WILL CONTINUE TO MONITOR.
--- NOTE | 2020-03-27 15:30 | NUR ---
ABRIL REEDER TOOK PT TO FRONT LOBBY WHERE WAS WAITING FOR SUBACUTE NURSE. PT IN STABLE CONDITION AT THIS TIME.
== END 2020-03-27 15:25 | disposition home or self-care (01) | DRG 720 ==
LOC: MED 09:34 → MTU 16:44 → OBSVTOIN 03-26 13:55
PROVIDERS: ADMIT Internal Medicine; ATTEND Internal Medicine
DX: A41.9 Sepsis, unspecified organism (principal); N10 Acute pyelonephritis; E87.1 Hypo-osmolality and hyponatremia; E87.6 Hypokalemia; J45.909 Unspecified asthma, uncomplicated; Z20.828 Contact with and (suspected) exposure to other viral communicable diseases
CPT/HCPCS: 96365; 96375; 96376; 99291; G0378; 36415; 80048; 80053; 81001; 83605; 83690; 85025; 87040; 87081; 87086; 87186; J0696; J1885; J2405; J7030; J7060

== ENCOUNTER 2020-03-29 12:39 | Emergency (ER) | payer OTHER, SELFPAY ==
[~2020-03-29] VITALS: Ht 165.1 cm; Wt 84.4 kg
[~2020-03-29 12:39] MED LIST changes: +ACET-1182 PO; +CEPH250C16 PO; -FERR-252 PO; -PREN-385 PO
[2020-03-29 12:43] VITALS: BP 138/68
--- NOTE | 2020-03-29 12:48 | NUR ---
PATIENT AMBULATED WITH STEADY GAIT TO BED 2.
--- NOTE | 2020-03-29 13:20 | NUR ---
Patient assessed, treated, and discharged with v/s stable by Dr Clarke. Written and verbal after care instructions about urinary tract infections given and explained. Patient alert, oriented and verbalized understanding of instructions. Ambulatory with steady gait. All questions addressed prior to discharge. ID band removed. Patient advised to follow up with PMD. Rx of zofran, motrin, and keflex given. Patient educated on indication of medication including possible reaction and side effects. Opportunity to ask questions provided and answered.
[2020-03-29 13:25] VITALS: BP 138/68
== END 2020-03-29 13:20 | disposition home or self-care (01) ==
LOC: MED 12:39
DX: N39.0 Urinary tract infection, site not specified (principal); Z88.6 Allergy status to analgesic agent; Z79.899 Other long term (current) drug therapy; Z98.890 Other specified postprocedural states
CPT/HCPCS: 99283

== ENCOUNTER 2020-07-03 12:45 | Emergency (ER) | payer OTHER, SELFPAY ==
[~2020-07-03] VITALS: Ht 165.1 cm; Wt 81.6 kg
[2020-07-03 13:02] VITALS: BP 120/74
[2020-07-03] MEDS ORDERED: ONDANSETRON 4 MG/2 ML VIAL IVP STA (13:40)
[2020-07-03] MEDS ORDERED: NACL 0.9% 1,000 ML IV ONE (13:40)
[2020-07-03] MEDS ORDERED: PROCHLORPERAZINE 10 MG/2 ML VIAL IVP STA (14:24)
[2020-07-03] MEDS ORDERED: KETOROLAC 30 MG/ML VIAL IVP ONE (14:25)
[2020-07-03 15:08] LABS: HEMATOCRIT 40.1 % (36-48); HEMOGLOBIN 13.2 g/dL (12.0-16.0); MEAN CORPUSCULAR HEMOGLOBIN 29 pg (27-31); MEAN CORPUSCULAR HGB CONC 33 g/dL (33-37); MEAN CORPUSCULAR VOLUME 89.1 fL (80-94); PLATELET COUNT (AUTO) 213 K/uL (140-450); RED CELL DISTRIBUTION WIDTH 13.6 % (11.6-13.7)
[2020-07-03 15:24] LABS: WHITE BLOOD COUNT (AUTO) 27.3 K/uL (4.8-10.8)
[2020-07-03 15:32] LABS: ALBUMIN 3.3 g/dL (3.4-5.0); ANION GAP 13.1 (8-16); CARBON DIOXIDE 23.7 mmol/L (21-32); CREATININE 1.3 mg/dL (0.6-1.3); POTASSIUM 3.8 mmol/L (3.5-5.1); TOTAL BILIRUBIN 0.6 mg/dL (0.0-1.0)
[2020-07-03 15:45] LABS: LYMPHOCYTES % (MANUAL) 3 % (20-46); MONOCYTES % (MANUAL) 2 % (5-12)
[2020-07-03] MEDS ORDERED: cefTRIAXone 1,000 MG VIAL ONE (17:51)
--- NOTE | 2020-07-03 18:18 | NUR ---
attempted to call pt , no answer
--- NOTE | 2020-07-03 19:45 | NUR ---
CALLED PT FOR EKG, NO ANSWER
== END 2020-07-03 18:18 | disposition left against medical advice (07) ==
LOC: MED 12:45
DX: N13.2 Hydronephrosis with renal and ureteral calculous obstruction (principal); R11.2 Nausea with vomiting, unspecified
CPT/HCPCS: 36415; 71045; 74176; 80053; 83690; 84484; 85025; 93005; 96374; 96375; 99285; J0780; J1885; J2405; J7030; J0696

== ENCOUNTER 2021-03-03 16:59 | Emergency (ER) | payer OTHER, SELFPAY ==
[~2021-03-03] VITALS: Ht 165.1 cm; Wt 93.0 kg
[2021-03-03 17:26] VITALS: BP 130/90
--- NOTE | 2021-03-03 17:32 | NUR ---
TENT 1.
[2021-03-03] MEDS ORDERED: ONDANSETRON 4 MG ODT PO ONE (18:15)
[2021-03-03] MEDS ORDERED: KETOROLAC 30 MG/ML VIAL IM ONE (18:15)
[2021-03-03] MEDS ORDERED: IMI25 PO (19:13)
[2021-03-03] MEDS ORDERED: TRAM50TA1 PO (19:13)
[2021-03-03] MEDS ORDERED: ONDA-24 SL (19:15)
--- NOTE | 2021-03-03 19:18 | NUR ---
SEEN BY ELIECER HAWKINS, AND FOR D/C
[2021-03-03 19:20] VITALS: BP 121/86
--- NOTE | 2021-03-03 19:20 | NUR ---
Patient discharged with v/s stable. Written and verbal after care instructions given and explained. Patient alert, oriented and verbalized understanding of instructions. Ambulatory with steady gait. All questions addressed prior to discharge. ID band removed. Patient advised to follow up with PMD. Rx of IMITREX, ZOFRAN, ULTRAM, given. Patient educated on indication of medication including possible reaction and side effects. Opportunity to ask questions provided and answered.
== END 2021-03-03 19:20 | disposition home or self-care (01) ==
LOC: MED 16:59
DX: G43.909 Migraine, unspecified, not intractable, without status migrainosus (principal); R11.0 Nausea; Z88.5 Allergy status to narcotic agent; Z79.899 Other long term (current) drug therapy; Z98.890 Other specified postprocedural states
CPT/HCPCS: 70450; 81025; 96372; 99284; J1885; Q0162

== ENCOUNTER 2021-12-03 21:56 | Emergency (ER) | payer OTHER ==
[~2021-12-03] VITALS: Ht 165.1 cm; Wt 99.8 kg
[~2021-12-03 21:56] MED LIST changes: +IMI25 PO; +ONDA-188 SL; +TRAM50TA1 PO
[2021-12-03 22:11] VITALS: BP 138/74
--- NOTE | 2021-12-03 22:26 | NUR ---
26 YO BIBS W C/O OF CHEST PAIN FOR 5 DAY WITH NUMBNESS TO R ARM THAT RADIATES TO NECK AND SHOULDERS, WITH SOB, N/V. PT STATES SHE HAS BEEN DEALING WITH A LOT OF STRESS. DENIES FEVER NKDA MEDS: DENIES PMH: ENLARGED KIDNEY, KIDNEY STONES
--- NOTE | 2021-12-03 23:03 | NUR ---
PT GIVEN WATER
[2021-12-03 23:24] LABS: APPEARANCE,URINE CLEAR (CLEAR); BILIRUBIN,URINE NEGATIVE (NEGATIVE); BLOOD, URINE NEGATIVE (NEGATIVE); COLOR,URINE YELLOW (YELLOW); LEUKOCYTE ESTERASE ,URINE TRACE (NEGATIVE); NITRITE, URINE NEGATIVE (NEGATIVE); UGLUCOSE NEGATIVE (NEGATIVE)
[2021-12-03] MEDS ORDERED: ACETAMINOPHEN EXTRA STRENGTH 500 MG TAB PO ONE (23:35)
[2021-12-03 23:51] LABS: ANION GAP 8.2 (8-16); CARBON DIOXIDE 23.5 mmol/L (21-32); CREATININE 1.1 mg/dL (0.6-1.3); POTASSIUM 3.7 mmol/L (3.5-5.1); TOTAL BILIRUBIN 0.2 mg/dL (0.0-1.0)
[2021-12-03 23:52] LABS: RBC,URINE 0-5 /HPF (0-5)
--- NOTE | 2021-12-04 00:14 | NUR ---
PT RESTING COMFORTABLY IN BED. VSS
[2021-12-04] MEDS ORDERED: LORazepam 0.5 MG TAB PO ONE (00:25)
[2021-12-04] MEDS ORDERED: ACET-10509 PO (00:55)
[2021-12-04] MEDS ORDERED: IBUP-2213 PO (00:55)
[2021-12-04 01:43] VITALS: BP 132/62
--- NOTE | 2021-12-04 01:43 | NUR ---
Patient discharged with v/s stable. Written and verbal after care instructions given and explained. Patient alert, oriented and verbalized understanding of instructions. Ambulatory with steady gait. All questions addressed prior to discharge. ID band removed. Patient advised to follow up with PMD. Rx of Ibuprofen and Tylenol given. Patient educated on indication of medication including possible reaction and side effects. Opportunity to ask questions provided and answered.
[2021-12-05] MEDS ORDERED: NAPR-1704 PO (20:12)
[2021-12-05] MEDS ORDERED: ACET-8386 PO (20:12)
[2021-12-06] MEDS ORDERED: CEPH-588 PO (18:27)
--- NOTE | 2021-12-06 18:32 | NUR ---
LATE ENTRY. RECEIVED POSITIVE URINE RESULT, +ECOLI. DISCREPANCY LOG SIGNED BY DR MYERS. RX OF KEFLEX SENT TO PTS PHARMACY. ATTEMPTED TO CALL PT TO INFORM HER, NO ANSWER. LEFT MESSAGE TO CALL BACK. FORM IN BINDER.
== END 2021-12-04 02:23 | disposition home or self-care (01) ==
LOC: MED 21:56
DX: R07.89 Other chest pain (principal); F41.9 Anxiety disorder, unspecified; E87.1 Hypo-osmolality and hyponatremia; Z72.89 Other problems related to lifestyle
CPT/HCPCS: 36415; 80053; 81001; 87086; 99283

== ENCOUNTER 2021-12-05 17:34 | Emergency (ER) | payer OTHER ==
[~2021-12-05] VITALS: Ht 165.1 cm; Wt 104.3 kg
[~2021-12-05 17:34] MED LIST changes: +ACET-10509 PO; +IBUP-2213 PO
[2021-12-05 17:35] VITALS: BP 160/90
--- NOTE | 2021-12-05 17:42 | NUR ---
PT AMBULATED TO ER BED 7
--- NOTE | 2021-12-05 17:58 | NUR ---
DR OLMEDO AT BEDSIDE EVALUATING PT
[2021-12-05] MEDS ORDERED: KETOROLAC 30 MG/ML VIAL IM ONE (18:10)
[2021-12-05 19:04] VITALS: BP 113/71
[2021-12-05 19:21] LABS: BASOPHILS # (AUTO) 0.1 K/uL (0.00-0.22); BASOPHILS % (AUTO) 0.5 % (0.0-2.0); EOSINOPHILS # (AUTO) 0.2 K/uL (0-0.4); EOSINOPHILS % (AUTO) 1.6 % (0.0-4.0); HEMATOCRIT 43.7 % (36-48); HEMOGLOBIN 14.6 g/dL (12.0-16.0); LYMPHOCYTES # (AUTO) 2.5 K/uL (2.5-16.5); LYMPHOCYTES % (AUTO) 25.1 % (20.5-51.1); MEAN CORPUSCULAR HEMOGLOBIN 29 pg (27-31); MEAN CORPUSCULAR HGB CONC 33 g/dL (33-37); MEAN CORPUSCULAR VOLUME 86.8 fL (80-94); MONOCYTES # (AUTO) 0.6 K/uL (0.8-1.0); MONOCYTES % (AUTO) 5.7 % (1.7-9.3); NEUTROPHILS # (AUTO) 6.8 K/uL (1.8-7.7); NEUTROPHILS % (AUTO) 67.1 % (42.2-75.2); PLATELET COUNT (AUTO) 277 K/uL (140-450); RED BLOOD CELL COUNT(AUTO) 5.04 MIL/uL (4.20-5.40); RED CELL DISTRIBUTION WIDTH 14.1 % (11.6-13.7); WHITE BLOOD COUNT (AUTO) 10.1 K/uL (4.8-10.8)
--- NOTE | 2021-12-05 19:37 | NUR ---
REPORT GIVEN TO ELVIA YU. TRANSFER OF CARE
[2021-12-05 19:40] LABS: ANION GAP 15.7 (8-16); CARBON DIOXIDE 22.2 mmol/L (21-32); POTASSIUM 3.9 mmol/L (3.5-5.1)
[2021-12-05 19:46] LABS: ALBUMIN 3.6 g/dL (3.4-5.0); MAGNESIUM 2.1 mg/dL (1.8-2.4); TOTAL BILIRUBIN 0.2 mg/dL (0.0-1.0)
[2021-12-05] MEDS ORDERED: ACET-8386 PO (20:12)
[2021-12-05] MEDS ORDERED: NAPR-1704 PO (20:12)
--- NOTE | 2021-12-05 20:51 | NUR ---
d/c with VSS. d/c education given. opportunity to ask questions given and answered. rx of naprosyn and norco given.
[2021-12-06] MEDS ORDERED: CEPH-588 PO (18:27)
== END 2021-12-05 20:13 | disposition home or self-care (01) ==
LOC: MED 17:34
DX: M79.601 Pain in right arm (principal); Z79.899 Other long term (current) drug therapy
CPT/HCPCS: 36415; 73030; 73090; 80053; 81002; 81025; 83735; 85025; 96372; 99284; J1885

== ENCOUNTER 2022-03-24 12:46 | Emergency (ER) | payer OTHER ==
[~2022-03-24] VITALS: Ht 165.1 cm; Wt 103.9 kg
[~2022-03-24 12:46] MED LIST changes: +ACET-8386 PO; +CEPH-588 PO; +NAPR-1704 PO
[2022-03-24 12:55] VITALS: BP 138/93
[2022-03-24 16:42] LABS: BASOPHILS # (AUTO) 0.1 K/uL (0.00-0.22); BASOPHILS % (AUTO) 0.9 % (0.0-2.0); EOSINOPHILS # (AUTO) 0.1 K/uL (0-0.4); EOSINOPHILS % (AUTO) 1.1 % (0.0-4.0); HEMATOCRIT 45.3 % (36-48); HEMOGLOBIN 15.3 g/dL (12.0-16.0); LYMPHOCYTES # (AUTO) 2.9 K/uL (2.5-16.5); LYMPHOCYTES % (AUTO) 28.1 % (20.5-51.1); MEAN CORPUSCULAR HEMOGLOBIN 30 pg (27-31); MEAN CORPUSCULAR HGB CONC 34 g/dL (33-37); MEAN CORPUSCULAR VOLUME 88.2 fL (80-94); MONOCYTES # (AUTO) 0.5 K/uL (0.8-1.0); MONOCYTES % (AUTO) 5.3 % (1.7-9.3); NEUTROPHILS # (AUTO) 6.6 K/uL (1.8-7.7); NEUTROPHILS % (AUTO) 64.6 % (42.2-75.2); PLATELET COUNT (AUTO) 298 K/uL (140-450); RED BLOOD CELL COUNT(AUTO) 5.13 MIL/uL (4.20-5.40); RED CELL DISTRIBUTION WIDTH 13.6 % (11.6-13.7); WHITE BLOOD COUNT (AUTO) 10.2 K/uL (4.8-10.8)
[2022-03-24 17:09] LABS: ALBUMIN 3.8 g/dL (3.4-5.0); CARBON DIOXIDE 22.7 mmol/L (21-32); CREATININE 0.9 mg/dL (0.6-1.3); POTASSIUM 3.7 mmol/L (3.5-5.1); TOTAL BILIRUBIN 0.3 mg/dL (0.0-1.0)
--- NOTE | 2022-03-24 18:05 | NUR ---
26F PRESENTS TO ED WITH C/O RLQ PAIN RADIATING TO LOWER BACK, HEMATURIA AND DYSURIA TODAY. DENIES TAKING MEDS FOR PAIN, DENIES FEVERS OR CHILLS.
[2022-03-24] MEDS ORDERED: KETOROLAC 15 MG/ML VIAL IM ONE (19:15)
[2022-03-24 19:22] VITALS: BP 134/68
--- NOTE | 2022-03-24 19:32 | NUR ---
Patient discharged with v/s stable. Written and verbal after care instructions FOR OVARIAN CYST AND ABDOMINAL PAIN given and explained. Patient verbalized understanding. Ambulatory with steady gait. All questions addressed prior to discharge. Advised to follow up with PMD.
[2022-03-24 21:12] LABS: APPEARANCE,URINE CLEAR (CLEAR); BILIRUBIN,URINE NEGATIVE (NEGATIVE); BLOOD, URINE 1+ (NEGATIVE); COLOR,URINE YELLOW (YELLOW); LEUKOCYTE ESTERASE ,URINE NEGATIVE (NEGATIVE); NITRITE, URINE NEGATIVE (NEGATIVE); UGLUCOSE NEGATIVE (NEGATIVE)
[2022-03-24 21:34] LABS: OTHER CASTS, URINE None Seen /LPF (None Seen); WBC,URINE 0-5 /HPF (0-5)
== END 2022-03-24 19:35 | disposition home or self-care (01) ==
LOC: MED 12:46
DX: N83.202 Unspecified ovarian cyst, left side (principal); R42 Dizziness and giddiness; R11.0 Nausea; Z79.899 Other long term (current) drug therapy; Z98.890 Other specified postprocedural states; Z87.442 Personal history of urinary calculi
CPT/HCPCS: 36415; 74176; 76856; 80053; 81001; 81025; 82150; 83690; 84702; 85025; 96372; 99285; J1885; Q0092

== ENCOUNTER 2022-11-09 21:23 | Emergency (ER) | payer OTHER ==
[~2022-11-09] VITALS: Ht 165.1 cm; Wt 90.7 kg
[~2022-11-09 21:23] MED LIST changes: -ACET-8386 PO; +ACET-8905 PO; +TRAM-748 PO; -TRAM50TA1 PO
[2022-11-09 22:18] VITALS: BP 135/87
--- NOTE | 2022-11-09 23:42 | NUR ---
pt called by [employer] with no answer.
--- NOTE | 2022-11-10 00:20 | NUR ---
pt called by [employer] with no answer.
--- NOTE | 2022-11-10 00:31 | NUR ---
pt called in lobby and outside with no answer.
--- NOTE | 2022-11-10 00:37 | NUR ---
pt called in lobby and outside with no answer. pt eloped. dr. benson notified
== END 2022-11-10 00:37 | disposition left against medical advice (07) ==
LOC: MED 21:23
DX: R07.9 Chest pain, unspecified (principal); R42 Dizziness and giddiness; H53.8 Other visual disturbances; Z79.899 Other long term (current) drug therapy; Z79.1 Long term (current) use of non-steroidal anti-inflammatories (NSAID); Z79.2 Long term (current) use of antibiotics; Z79.891 Long term (current) use of opiate analgesic
CPT/HCPCS: 93005; 99283

== ENCOUNTER 2022-11-26 16:21 | Emergency (ER) | payer OTHER ==
[~2022-11-26] VITALS: Ht 167.6 cm; Wt 88.5 kg
[2022-11-26 16:53] VITALS: BP 131/83
--- NOTE | 2022-11-26 16:59 | NUR ---
27 YO FEMALE STUART PRESENTS TO THE ED WITH NAUSEA, VOMITING, DIARRHEA, FATIGUE, CONSTANT BACK PAIN STARTING YESTERDAY. LAST TIME SHE VOMITED 1615. PATIENT ALSO COMPLAINS OF HEMATURIA GOING ON FOR 3 WEEKS THAT COMES AND GOES. 7/10 PAIN NOTED TO LOWER BACK.
[2022-11-26] MEDS ORDERED: ALUMINUM HYD/MAG/SIMETHICONE 30 ML UDC PO ONE (17:20)
[2022-11-26] MEDS ORDERED: ONDANSETRON 4 MG/2 ML VIAL IVP ONE (17:20)
[2022-11-26] MEDS ORDERED: FAMOTIDINE 20 MG/2 ML VIAL IVP ONE (17:20)
[2022-11-26] MEDS ORDERED: DICYCLOMINE 10 MG CAP PO ONE (17:20)
[2022-11-26] MEDS ORDERED: NACL 0.9% 1,000 ML IV SCH (17:20)
[2022-11-26 17:53] LABS: APPEARANCE,URINE CLEAR (CLEAR); BILIRUBIN,URINE NEGATIVE (NEGATIVE); BLOOD, URINE NEGATIVE (NEGATIVE); COLOR,URINE YELLOW (YELLOW); LEUKOCYTE ESTERASE ,URINE NEGATIVE (NEGATIVE); NITRITE, URINE NEGATIVE (NEGATIVE); PH,URINE 6.5 (5.0-9.0); UGLUCOSE NEGATIVE (NEGATIVE)
--- NOTE | 2022-11-26 17:55 | NUR ---
blood drawn by phleb
[2022-11-26 18:05] LABS: BASOPHILS # (AUTO) 0.1 K/uL (0.00-0.22); BASOPHILS % (AUTO) 0.7 % (0.0-2.0); EOSINOPHILS # (AUTO) 0.3 K/uL (0-0.4); EOSINOPHILS % (AUTO) 2.9 % (0.0-4.0); HEMATOCRIT 42.9 % (36-48); HEMOGLOBIN 14.6 g/dL (12.0-16.0); LYMPHOCYTES # (AUTO) 2.1 K/uL (2.5-16.5); LYMPHOCYTES % (AUTO) 24.2 % (20.5-51.1); MEAN CORPUSCULAR HEMOGLOBIN 31 pg (27-31); MEAN CORPUSCULAR HGB CONC 34 g/dL (33-37); MEAN CORPUSCULAR VOLUME 89.8 fL (80-94); MONOCYTES # (AUTO) 0.7 K/uL (0.8-1.0); MONOCYTES % (AUTO) 8.1 % (1.7-9.3); NEUTROPHILS # (AUTO) 5.5 K/uL (1.8-7.7); NEUTROPHILS % (AUTO) 64.1 % (42.2-75.2); PLATELET COUNT (AUTO) 264 K/uL (140-450); RED BLOOD CELL COUNT(AUTO) 4.78 MIL/uL (4.20-5.40); RED CELL DISTRIBUTION WIDTH 12.7 % (11.6-13.7); WHITE BLOOD COUNT (AUTO) 8.6 K/uL (4.8-10.8)
[2022-11-26 18:22] LABS: ALBUMIN 3.7 g/dL (3.4-5.0); ANION GAP 11.2 (8-16); CARBON DIOXIDE 29.9 mmol/L (21-32); POTASSIUM 4.1 mmol/L (3.5-5.1); TOTAL BILIRUBIN 0.3 mg/dL (0.0-1.0)
[2022-11-26 18:26] LABS: RBC,URINE NONE SEEN /HPF (0-5)
[2022-11-26] MEDS ORDERED: SUCR1TAB35 PO (18:47)
[2022-11-26] MEDS ORDERED: FAMO-90 PO (18:47)
[2022-11-26] MEDS ORDERED: ONDA-188 SL (18:47)
[2022-11-26 19:00] VITALS: BP 126/68
== END 2022-11-26 19:00 | disposition home or self-care (01) ==
LOC: MED 16:21
DX: R11.10 Vomiting, unspecified (principal); R19.7 Diarrhea, unspecified; R31.9 Hematuria, unspecified; R10.13 Epigastric pain; R39.15 Urgency of urination; R35.0 Frequency of micturition; F12.90 Cannabis use, unspecified, uncomplicated; Z71.6 Tobacco abuse counseling; Z79.899 Other long term (current) drug therapy; Z98.890 Other specified postprocedural states; Z79.2 Long term (current) use of antibiotics; Z79.1 Long term (current) use of non-steroidal anti-inflammatories (NSAID)
CPT/HCPCS: 36415; 80053; 81001; 81003; 81025; 83690; 85025; 96361; 96374; 96375; 99284; J2405; J3490; J7030

== ENCOUNTER 2023-06-11 08:30 | Emergency (ER) | payer OTHER ==
[~2023-06-11] VITALS: Ht 165.1 cm; Wt 90.7 kg
[~2023-06-11 08:30] MED LIST changes: +FAMO-90 PO; +SUCR1TAB35 PO
[2023-06-11 08:35] VITALS: BP 119/80; PULSE 83; RESP 15; TEMP 98.4; O2SAT 98
[2023-06-11] MEDS ORDERED: ONDANSETRON 4 MG/2 ML VIAL IVP ONE (09:30)
[2023-06-11] MEDS ORDERED: NACL 0.9% 1,000 ML IV ONE (09:30)
[2023-06-11 09:49] LABS: APPEARANCE,URINE CLEAR (CLEAR); BILIRUBIN,URINE NEGATIVE (NEGATIVE); BLOOD, URINE NEGATIVE (NEGATIVE); COLOR,URINE YELLOW (YELLOW); LEUKOCYTE ESTERASE ,URINE TRACE (NEGATIVE); NITRITE, URINE NEGATIVE (NEGATIVE); PROTEIN,URINE 1+ (NEGATIVE); UGLUCOSE NEGATIVE (NEGATIVE)
[2023-06-11 09:49] LABS: BASOPHILS # (AUTO) 0.1 K/uL (0.00-0.22); BASOPHILS % (AUTO) 0.8 % (0.0-2.0); EOSINOPHILS # (AUTO) 0.3 K/uL (0-0.4); EOSINOPHILS % (AUTO) 2.7 % (0.0-4.0); HEMATOCRIT 42.4 % (36-48); HEMOGLOBIN 14.5 g/dL (12.0-16.0); LYMPHOCYTES # (AUTO) 1.8 K/uL (2.5-16.5); LYMPHOCYTES % (AUTO) 17.4 % (20.5-51.1); MEAN CORPUSCULAR HEMOGLOBIN 31 pg (27-31); MEAN CORPUSCULAR HGB CONC 34 g/dL (33-37); MEAN CORPUSCULAR VOLUME 90.2 fL (80-94); MONOCYTES # (AUTO) 0.7 K/uL (0.8-1.0); MONOCYTES % (AUTO) 6.6 % (1.7-9.3); NEUTROPHILS # (AUTO) 7.6 K/uL (1.8-7.7); NEUTROPHILS % (AUTO) 72.5 % (42.2-75.2); PLATELET COUNT (AUTO) 262 K/uL (140-450); RED CELL DISTRIBUTION WIDTH 12.6 % (11.6-13.7); WHITE BLOOD COUNT (AUTO) 10.5 K/uL (4.8-10.8)
[2023-06-11 09:56] LABS: ANION GAP 12.5 (8-16); CALCIUM 8.4 mg/dL (8.5-10.1); CARBON DIOXIDE 24.2 mmol/L (21-32); CREATININE 0.7 mg/dL (0.6-1.3); POTASSIUM 3.7 mmol/L (3.5-5.1)
[2023-06-11 10:03] LABS: BACTERIA,URINE FEW /HPF (None Seen); RBC,URINE 0-5 /HPF (0-5); SQUAMOUS EPITHELIAL CELL,UR 4-10 (MOD) /LPF (0-3 (FEW))
[2023-06-11 10:06] LABS: FLU A ANTIGEN negative (NEGATIVE); FLU B ANTIGEN NEGATIVE (NEGATIVE)
[2023-06-11] MEDS ORDERED: ONDA8TAB87 PO (10:26)
[2023-06-11] MEDS ORDERED: IBUP-2213 PO (10:26)
[2023-06-11 10:48] VITALS: BP 125/67; PULSE 79; RESP 14; TEMP 98.2; O2SAT 99
== END 2023-06-11 10:48 | disposition home or self-care (01) ==
LOC: MED 08:30
DX: R11.2 Nausea with vomiting, unspecified (principal); Z20.822 Contact with and (suspected) exposure to COVID-19; R53.1 Weakness; Z79.899 Other long term (current) drug therapy
CPT/HCPCS: 36415; 80048; 81001; 81025; 85025; 87086; 87426; 87804; 96361; 96374; 99283; J2405; J7030